=== PATIENT | male | born 2000 | race Caucasian/White ===

== ENCOUNTER 2023-01-22 12:20 | Emergency (ER) | payer MEDICAID, SELFPAY ==
[2023-01-22 12:26] VITALS: BP 157/65; PULSE 75; RESP 20; TEMP 36.6; O2SAT 99; BMI 24.4
--- NOTE | 2023-01-22 12:55 | XR_ITS ---
The [address] [address] Patient Name: JIM LANGE MRN: [id number] date: 2000 Sex: M Assigned Patient Location: ER Current Patient Location: ER Accession/Order Number: [id number] Exam Date: 01/22/2023 13:19 Report Date: 01/22/2023 13:53 At the request of: MIHAELA FOLEY Procedure: XR shoulder RT min 2V PROCEDURE: XR shoulder RT min 2V HISTORY: pain after falling COMPARISON: None. FINDINGS: BONES:No fracture, acute abnormality, or significant arthropathy. SOFT TISSUES:No visible soft tissue swelling. EFFUSION:None visible. OTHER: Negative. XR/XR shoulder RT min 2V IMPRESSION: 1. No acute bone abnormality. Electronically authenticated by: MANDEEP ELLINGTON Date: 01/22/2023 13:53
--- NOTE | 2023-01-22 12:56 | ED.GENADUL1 ---
HPI - General Adult General Chief complaint: Extremity Injury, Upper Stated complaint: FELL YESTERDAY R SHOULDER Time Seen by Provider: 01/22/23 12:55 Source: patient Mode of arrival: walk-in Limitations: no limitations History of Present Illness HPI narrative: Patient is a 22-year-old male who is playing volleyball yesterday and injured his right shoulder. Patient was playing volleyball yesterday, patient is currently at [facility] re[facility] facility. Patient dove for volleyball, landing on his right shoulder. Patient felt a popping sensation in the right shoulder when this occurred. Patient's having more pain to the right shoulder today and along the right collarbone. Patient was sent for evaluation. . All systems are negative except as noted/marked. All systems reviewed and otherwise negative. . Nurses note and vital signs reviewed and patient is not hypoxic. General: The patient appears well and in no apparent distress. Patient is resting comfortably on cart. Patient is not toxic, lethargic, or listless Skin: Warm, dry, no pallor noted. There is no rash noted. No petechiae, purpura. Head: Normocephalic, atraumatic Eye: Normal conjunctiva, no drainage, EOMI. PERRL Ears, Nose, Mouth, and Throat: oral mucosa is moist. Nares patent. Cardiovascular: Regular Rate and Rhythm, no murmur, gallop, rub Respiratory: Patient is in no distress, no accessory muscle use, lungs are clear to auscultation, no wheezing, rales or rhonchi Back: non-tender, no CVA tenderness bilaterally to percussion. No CT LS midline pain GI: soft, no tenderness Musculoskeletal: Patient has full range of motion of all of the extremities. Patient does have minimal pain to the right AC joint, no pain with flexion and extension and abduction or abduction to the right shoulder. Patient does have mild reproducible tenderness to palpation to the upper parasternal. No crepitus. No signs of any type of sternoclavicular dislocation. Otherwise no motor, sensory, or focal neurological deficits Neurological: A&O x3, normal speech Psychiatric: Cooperative Related Data Allergies Allergy/AdvReac Type Severity Reaction Status Date / Time No Known Drug Allergies Allergy Verified 01/22/23 12:29 PFSH PFSH Social History Smoking status: Light tobacco smoker Exam Constitutional Vital Signs, click to edit/add: Last Vital Signs Temp 97.8 F 01/22/23 12:26 Pulse 68 01/22/23 14:17 Resp 16 01/22/23 14:17 BP 142/48 H 01/22/23 14:17 Pulse Ox 98 01/22/23 14:17 O2 Del Method Room Air 01/22/23 14:17 Course Vital Signs Vital signs: Vital Signs Temperature 97.8 F 01/22/23 12:26 Pulse Rate 75 01/22/23 12:26 Respiratory Rate 20 01/22/23 12:26 Blood Pressure 157/65 H 01/22/23 12:26 Pulse Oximetry 99 01/22/23 12:26 Temperature 97.8 F 01/22/23 12:26 Pulse Rate 68 01/22/23 14:17 Respiratory Rate 16 01/22/23 14:17 Blood Pressure 142/48 H 01/22/23 14:17 Pulse Oximetry 98 01/22/23 14:17 Oxygen Delivery Method Room Air 01/22/23 14:17 Medical Decision Making MDM Narrative Medical decision making narrative: Patient x-ray shows no acute findings. See the official report. Patient will continue using ice and use Tylenol Motrin as needed for pain. Education on Rice therapy was done at bedside. No questions at discharge. Discharge Plan Discharge Chief Complaint: Extremity Injury, Upper Clinical Impression: Acute pain of right shoulder Patient Disposition: Home, Self-Care Condition: Good Instructions: P.R.I.C.E. Treatment (ED), Shoulder Pain (ED) Additional Instructions: alternate Tylenol Motrin as needed for pain. Ice 20 minutes on, 20 minutes off. Follow-up with the orthopedic surgery as needed. Stand Alone Forms: Portal Instructions Referrals: Physician,Non-Staff, [Primary Care Provider] - 1 week CLAUDY ALFREDO [Physician] - 1 week Discharge Date/Time: 01/22/23 14:19
[2023-01-22 14:17] VITALS: BP 142/48; PULSE 68; RESP 16; O2SAT 98
== END 2023-01-22 14:19 | disposition home or self-care (01) ==
PROVIDERS: Emergency Provider Emergency Medicine
DX: M25.511 Pain in right shoulder (principal); F17.210 Nicotine dependence, cigarettes, uncomplicated
CPT/HCPCS: 73030; 99283